=== PATIENT | female | born 1990 | race Caucasian/White ===

== ENCOUNTER 2023-01-25 18:23 | Outpatient (CLI) | payer OTHER, SELFPAY | END 2023-01-25 18:24 | disposition home or self-care (01) | PROVIDERS: Visit Provider Registered Nurse | DX: Z01.419 Encounter for gynecological examination (general) (routine) without abnormal findings (principal); Z13.6 Encounter for screening for cardiovascular disorders; Z13.1 Encounter for screening for diabetes mellitus | CPT/HCPCS: 80061; 82947 ==

== ENCOUNTER 2025-01-28 07:37 | Outpatient (CLI) | payer MEDICARE, SELFPAY | END 2025-01-28 07:38 | disposition home or self-care (01) | LOC: NFLDREF 16:50 | PROVIDERS: PCP Family Medicine; Referring Provider Family Medicine; Visit Provider Family Medicine | DX: F41.1 Generalized anxiety disorder (principal); R53.83 Other fatigue; R63.5 Abnormal weight gain; Z13.6 Encounter for screening for cardiovascular disorders | CPT/HCPCS: 80053; 80061; 84443 ==